=== PATIENT | female | born 1945 | race Caucasian/White ===

== ENCOUNTER 2019-09-05 02:34 | Inpatient (IN) | payer MEDICARE, OTHER ==
[~2019-09-05] VITALS: Ht 152.4 cm; Wt 54.4 kg
--- NOTE | 2019-09-05 02:40 | NUR ---
[id number] FROM HOME C/C LOWER ABD PAIN, +N/V X7HRS, BLOOD IN URINE, TO ER BED 3, VSS AWAITING MED EVAL
[2019-09-05] MEDS ORDERED: MORPHINE SULFATE INJ 2 MG/ML DISP.SYRIN IV ONE (03:00)
[2019-09-05] MEDS ORDERED: IV NS 0.9% 500 ML BAG IV ONE (03:00)
[2019-09-05] MEDS ORDERED: ONDANSETRON HCL/PF 4 MG/2 ML VIAL IVP ONE (03:00)
[2019-09-05 03:07] LABS: BASOPHILS # (AUTO) 0.1 /CMM (0.0-0.2); BASOPHILS % (AUTO) 0.2 % (0.0-2.0); EOSINOPHILS % (AUTO) 0.3 % (0.0-6.0); HEMATOCRIT 49 % (33-45); LYMPHOCYTES # (AUTO) 0.8 /CMM (0.8-4.8); LYMPHOCYTES % (AUTO) 2.6 % (20.0-44.0); MEAN CORPUSCULAR HGB CONC 33 g/dl (31.0-36.0); MEAN CORPUSCULAR VOLUME 97 fL (82-100); MONOCYTES # (AUTO) 1.2 /CMM (0.1-1.30); MONOCYTES % (AUTO) 4.2 % (2.0-12.0); NEUTROPHILS # (AUTO) 27.3 /CMM (1.8-8.9); NEUTROPHILS % (AUTO) 92.7 % (43.0-81.0); PLATELET COUNT (AUTO) 354 /CMM (150-450); RED BLOOD CELL COUNT(AUTO) 5.01 MIL/uL (4.0-5.2); WHITE BLOOD COUNT (AUTO) 29.5 K/uL (4.3-11.0)
[2019-09-05 03:18] LABS: CALCIUM, SERUM 10.9 mg/dL (8.5-10.1); CREATININE 1.1 mg/dL (0.6-1.3); POTASSIUM 3.4 mmol/L (3.5-5.1)
--- NOTE | 2019-09-05 03:28 | NUR ---
PT TAKEN TO RADIOLOGY
[2019-09-05] MEDS ORDERED: VANCOMYCIN 1 GM in IV D5W 250 ML IV ONE (03:30)
[2019-09-05] MEDS ORDERED: LEVOFLOXACIN 750 MG /D5W 150ML PIGGYBACK IV ONE (03:30)
[2019-09-05 03:49] LABS: APPEARANCE,URINE Cloudy (CLEAR); BILIRUBIN,URINE LARGE (NEGATIVE); BLOOD, URINE Negative Ery/uL (NEGATIVE); COLOR,URINE Brown (YELLOW); KETONES,URINE 15 (NEGATIVE); LEUKOCYTE ESTERASE ,URINE Large (NEGATIVE); NITRITE, URINE Positive (NEGATIVE); PROTEIN,URINE 30 mg/dl (NEGATIVE); UGLUCOSE Negative (NEGATIVE)
[2019-09-05] MEDS ORDERED: VANCOMYCIN 1 GM VIAL ONE (03:50)
[2019-09-05 04:43] LABS: BACTERIA,URINE Many /HPF (None Seen); SQUAMOUS EPITHELIAL CELL,UR Many /HPF (None Seen); WBC,URINE 21-50 /HPF (0-3)
[2019-09-05] MEDS ORDERED: IV NS 0.9% 1,000 ML BAG IV ONE (05:00)
[2019-09-05] MEDS ORDERED: ONDANSETRON HCL/PF 4 MG/2 ML VIAL IVP PRN (05:30)
[2019-09-05] MEDS ORDERED: ACETAMINOPHEN 325 MG TABLET PO PRN (05:30)
[2019-09-05] MEDS ORDERED: MORPHINE SULFATE INJ 2 MG/ML DISP.SYRIN IV PRN (05:30)
[2019-09-05] MEDS ORDERED: MONT4TAB9 PO (05:38)
[2019-09-05] MEDS ORDERED: ZOLP10TA2 PO (05:38)
[2019-09-05] MEDS ORDERED: NAPR-1009 PO (05:38)
[2019-09-05] MEDS ORDERED: LEVO137T24 PO (05:38)
[2019-09-05] MEDS ORDERED: ONDANSETRON HCL/PF 4 MG/2 ML VIAL ONE (06:22)
[2019-09-05] MEDS ORDERED: FEE PK DOSING 1 MIN EA MC ONE ×2 (06:42→20:46)
--- NOTE | 2019-09-05 06:46 | NUR ---
ACCORDING TO NURSING SUP. NO NURSES AVAILABLE AT THIS TIME. WILL CALL BACK SHORTLY
--- NOTE | 2019-09-05 07:39 | NUR ---
PLACED CALLL AND GAVE REPORT TO ABE POP FOR TISHA
--- NOTE | 2019-09-05 07:45 | NUR ---
RN NOTE RECEIVED REPORT FROM KIESHA SHI
--- NOTE | 2019-09-05 07:55 | NUR ---
PARKS RECREATION DIRECTOR NOTE RECEIVED PATIENT VIA GURNEY. ALERT AND ORIENTED X4. ON ROOM AIR, NO COMPLAINS OF ANY SOB, PAIN, N/V AT THIS TIME. WAS GIVEN 2200ML IVF. 2X DOSE OF ZOFRAN, MORPHINE AND VANCO IN ER. HAS INTACT SKIN. HAS A RIGHT FA#20 WITH NS AT 75 ML/HR. PATIENT WAS SUPPOSED [place] [facility] DECIDED SHE NEEDS TO BE ON TELE. SR/SB ON TELE MONITOR. PATIENT REFUSED TO REMOVE HER OWN CLOTHES FOR HOSPITAL GOWN. BELONGINGS LIST DONE BY THE RESAW FEEDER. BED LOCKED AND IN LOWEST POSITION. CALL LIGHT WITHIN REACH. WILL CONTINUE TO MONITOR
[2019-09-05 08:00] VITALS: BP 151/66
[2019-09-05] MEDS: PANTOPRAZOLE 40 MG VIAL IV SCH (08:58)
[2019-09-05] MEDS: IV NS 0.9% 1,000 ML IV SCH ×2 (08:58→21:10)
--- NOTE | 2019-09-05 09:00 | NUR ---
RN NOTE CALLED PHARMACY REGARDING PATIENT'S ANTIBIOTICS. PATIENT WAS SUPPOSED TO BE IN [facility]. ANTIBIOTICS WAS SENT THERE. PICKED UP AND WAS GIVEN TO PATIENT LATE
[2019-09-05] MEDS: AZTREONAM 1 G in IV NS 0.9% 100 ML IV SCH ×4 (09:17→14:33)
[2019-09-05] MEDS ORDERED: POTASSIUM CHLORIDE 20 MEQ TAB.PRT.SR PO SCH (10:30)
[2019-09-05] MEDS: METRONIDAZOLE 500MG/ NS 100ML 500 MG in PREMIX 1 EA IV SCH ×2 (10:37→16:48)
[2019-09-05 10:54] LABS: BASOPHILS % (AUTO) 0.1 % (0.0-2.0); HEMATOCRIT 44 % (33-45); HEMOGLOBIN 14.3 g/dL (11.5-14.8); LYMPHOCYTES # (AUTO) 0.5 /CMM (0.8-4.8); LYMPHOCYTES % (AUTO) 2.1 % (20.0-44.0); MEAN CORPUSCULAR HGB CONC 33 g/dl (31.0-36.0); MEAN CORPUSCULAR VOLUME 97 fL (82-100); MONOCYTES # (AUTO) 0.8 /CMM (0.1-1.30); MONOCYTES % (AUTO) 3.3 % (2.0-12.0); NEUTROPHILS # (AUTO) 22.3 /CMM (1.8-8.9); NEUTROPHILS % (AUTO) 94.5 % (43.0-81.0); PLATELET COUNT (AUTO) 292 /CMM (150-450); RED BLOOD CELL COUNT(AUTO) 4.53 MIL/uL (4.0-5.2); WHITE BLOOD COUNT (AUTO) 23.6 K/uL (4.3-11.0)
[2019-09-05 11:21] LABS: ALBUMIN 2.8 g/dL (3.4-5.0); BILIRUBIN,DIRECT 0.1 mg/dL (0.0-0.2); BILIRUBIN,TOTAL 0.6 mg/dL (0.2-1.0); CALCIUM, SERUM 8.3 mg/dL (8.5-10.1); CREATININE 1.1 mg/dL (0.6-1.3); POTASSIUM 4.2 mmol/L (3.5-5.1); TOTAL PROTEIN, SERUM 5.4 g/dL (6.4-8.2)
[2019-09-05 12:00] VITALS: BP 159/76
--- NOTE | 2019-09-05 14:11 | NUR ---
RN NOTE PATIENT REFUSED THE ANTIBIOTIC. SHE SAID SHE WILL GO AMA AND GO TO [facility]. AZAM JACINTO IS AWARE. SHE WILL BE PICKED UP BY HER FRIEND AT 1430 Addendum: 09/05/19 at 1420 by SANGEETA WATSON RN MEDICATION WASTED IN [facility] ROOM
--- NOTE | 2019-09-05 14:37 | NUR ---
RN NOTE PATIENT CHANGED HER MIND ONCE AGAIN. SHE WANTS THE DOSE OF AZACTAM BEFORE SHE LEAVES POINT. SHE WANTED TO GO TO [facility]. MEDICATION GIVEN WILL RUN FOR 1 HOUR AND THEN SHE WILL LEAVE
--- NOTE | 2019-09-05 15:10 | NUR ---
RN NOTE PATIENT REFUSED TO DO THE CT OF ABD PELVIS WITH CONTRAST.
--- NOTE | 2019-09-05 15:23 | NUR ---
RN NOTE UNIQUE ID FOR AMA: [id number]
--- NOTE | 2019-09-05 15:33 | NUR ---
RN NOTE PATIENT ABOUT TO LEAVE, AMA FORM SIGNED ALREADY. BUT SHE THINKS SHE WANTS TO STAY FOR A FEW MORE HOURS. SHE COULDN'T DECIDE AT THIS TIME IF SHE'S GOING OR NOT
[2019-09-05 16:00] VITALS: BP 124/82
[2019-09-05] MEDS ORDERED: VANCOMYCIN 500 MG in IV D5W 100 ML IV SCH (16:00)
--- NOTE | 2019-09-05 16:22 | NUR ---
RN NOTE PATIENT DECIDED TO STAY. OPHELIA MADE AWARE. ALSO, SECOND DOSE OF AZACTAM IV WAS GIVEN. PATIENT'S FACE/NECK STARTED TO TURN RED. SHE SAID IT FELT WARM. NO SOB/DISTRESS NOTED. JACINTO MADE AWARE. ORDERED 500ML NS BOLUS. PHARMACY MADE AWARE WELL.
[2019-09-05] MEDS ORDERED: IV NS 0.9% 500 ML IV ONE (16:30)
[2019-09-05] MEDS: VANCOMYCIN 500 MG in IV D5W 100 ML IV SCH (17:49)
--- NOTE | 2019-09-05 18:49 | NUR ---
RN CLOSING NOTE PATIENT IN BED, AWAKE AND ALERTX4. ALL MEDS GIVEN. ALL NEEDS MET. PATIENT ON TELE MONITOR, SR. HAS A RIGHT FA #20 WITH NS AT 75 ML/HR. PATIENT REFUSED CT SCAN FOR NOW. SHE SAID SHE WILL GO AMA TOMORROW AND GO TO THE [facility] AND HAVE CT OVER THERE. LACTIC ACID STILL ELEVATED AT 2.8. ID AWARE THAT PATIENT HAD A REACTION WITH AZACTAM. ID TALKED TO THE PATIENT REGARDING PLAN OF CARE. BED LOCKED AND IN LOWEST POSITION. CALL LIGHT WITHIN REACH. WILL ENDORSE TO NOC SHIFT FOR TISHA
[2019-09-05] MEDS ORDERED: DOSING PER PHARMACY-AMIKACI IV XX PRN (19:30)
[2019-09-05] MEDS ORDERED: diphenhydrAMINE HCL 50 MG/ML VIAL IV PRN (19:30)
--- NOTE | 2019-09-05 19:30 | NUR ---
LAMINATING MACHINE TENDER OPENING NOTE RECEIVED PATIENT IN BED. A/O X4. TOLERATING ROOM AIR. RESPIRATIONS ARE EVEN AND UNLABORED. NO S/ SOB NOTED. DENIES PAIN AT THIS TIME. EXTERNAL TELE MONITOR READS SR WITH BBB. IN NO APPARENT DISTRESS. IV ACCCESS IN RFA RUNNING NS@75ML/HR. BED IS LOW AN DLOCKED, HOB ELEVATED IN SEMI FOWLERS, SIDE RAILS UP X2, BED ALARM ON. CALL LIGHT WITHIN REACH. WILL CONTINUE TO MONITOR.
[2019-09-05 20:00] VITALS: BP 176/81
--- NOTE | 2019-09-05 21:00 | NUR ---
[place] SEAMER NOTE TRANSFERRED PATIENT FROM ROOM 115-2 TO 109. ALL BELONGINGS TRANSFERRED WITH PATIENT. PATIENT IS STABLE. WILL CONTINUE TO MONITOR.
[2019-09-05] MEDS: AMIKACIN 350 MG in IV D5W 100 ML IV SCH (21:04)
[2019-09-05] MEDS: NYSTATIN (PYXIS) 500,000 UNIT/5 ML ORAL.SUSP PO SCH (21:04)
--- NOTE | 2019-09-05 21:11 | NUR ---
OWNER CONSULTING ENGINEER NOTE ADMINISTERED PRN BENADRYL 12.5MG PER MD VERBAL ORDER BEFORE AMIKICIN. WILL CONTINUE TO MONITOR.
--- NOTE | 2019-09-05 21:46 | NUR ---
HEALTH PROMOTER NOTE ADMINISTERED PRN MORPHINE O.5 MG D/T PAIN 8/10 IN BACK AND LOWER EXTREMITIES. WILL CONTINUE TO MONITOR,
[2019-09-05] MEDS ORDERED: LORAZEPAM INJ 2 MG/ML VIAL IV ONE (23:00)
[2019-09-05] MEDS ORDERED: NAPROXEN 500 MG TABLET PO SCH (23:00)
[2019-09-06] VITALS: BP 181/76
--- NOTE | 2019-09-06 | NUR ---
CLIENT RELATIONSHIP MANAGER NOTE PATIENT BLOOD PRESSURE IS HIGH. IT IS ANXIETY RELATED. CALLED THE DOC. SHE ORDERED ATIVAN 0.5MG. PATIENT REFUSED TO TAKE ATIVAN. BP CONTINUES TO BE HIGH. REFUSING ALL OTHER ANXIETY MEDICATION. MD AWARE. PATIENT STATES HER BP WILL DECREASE ON ITS OWN. WILL CONTINUE OT MONITOR.
[2019-09-06] MEDS: METRONIDAZOLE 500MG/ NS 100ML 500 MG in PREMIX 1 EA IV SCH ×3 (00:13→18:14)
[2019-09-06] MEDS ORDERED: ZOLPIDEM TARTRATE 10 MG TABLET PO ONE (01:30)
[2019-09-06 04:00] VITALS: BP 135/70
[2019-09-06] MEDS: VANCOMYCIN 500 MG in IV D5W 100 ML IV SCH ×2 (05:34→19:18)
[2019-09-06 06:13] LABS: BASOPHILS % (AUTO) 0.2 % (0.0-2.0); HEMATOCRIT 39 % (33-45); HEMOGLOBIN 12.8 g/dL (11.5-14.8); LYMPHOCYTES # (AUTO) 1.7 /CMM (0.8-4.8); LYMPHOCYTES % (AUTO) 10.4 % (20.0-44.0); MEAN CORPUSCULAR HGB CONC 33 g/dl (31.0-36.0); MEAN CORPUSCULAR VOLUME 96 fL (82-100); MONOCYTES % (AUTO) 5.8 % (2.0-12.0); NEUTROPHILS # (AUTO) 13.7 /CMM (1.8-8.9); NEUTROPHILS % (AUTO) 83.6 % (43.0-81.0); PLATELET COUNT (AUTO) 258 /CMM (150-450); RED BLOOD CELL COUNT(AUTO) 4.04 MIL/uL (4.0-5.2); WHITE BLOOD COUNT (AUTO) 16.4 K/uL (4.3-11.0)
[2019-09-06 06:50] LABS: ALBUMIN 2.5 g/dL (3.4-5.0); BILIRUBIN,TOTAL 0.6 mg/dL (0.2-1.0); CALCIUM, SERUM 8.1 mg/dL (8.5-10.1); CREATININE 0.9 mg/dL (0.6-1.3); MAGNESIUM 1.9 mg/dL (1.8-2.4); POTASSIUM 3.8 mmol/L (3.5-5.1); TOTAL PROTEIN, SERUM 5.3 g/dL (6.4-8.2)
[2019-09-06 06:54] LABS: THYROID STIMULATING HORMONE 0.282 uIU/mL (0.358-3.74)
--- NOTE | 2019-09-06 07:00 | NUR ---
HAND UMBRELLA TIPPER CLOSING NOTE NO SIGNIFICANT CHANGES THROUGHOUT SHIFT. WILL ENDORSE TO NEXT SHIFT.
--- NOTE | 2019-09-06 07:40 | NUR ---
MOLD YARD WORKER OPENING NOTE RECEIVED REPORT FROM PM NURSE.PATIENT IN BED. A/O X4. TOLERATING ROOM AIR. RESPIRATIONS ARE EVEN AND UNLABORED. NO S/ SOB NOTED. DENIES PAIN AT THIS TIME. EXTERNAL TELE MONITOR READS SR WITH BBB HR 85. IV ACCESS IN RFA RUNNING NS@75ML/HR. BED IS LOW AND LOCKED POSITION. HOB ELEVATED IN SEMI FOWLERS.CALL LIGHT IN REACH.SIDE RAILS UP X3. BED ALARM ON. WILL CONTINUE TO MONITOR.
[2019-09-06 08:00] VITALS: BP 175/88
[2019-09-06] MEDS: NYSTATIN (PYXIS) 500,000 UNIT/5 ML ORAL.SUSP PO SCH ×3 (08:18→17:44)
[2019-09-06] MEDS: PANTOPRAZOLE 40 MG VIAL IV SCH (08:18)
[2019-09-06] MEDS: TRAMADOL HCL 50 MG TABLET PO PRN ×2 (09:06→20:59)
[2019-09-06] MEDS: LEVOTHYROXINE SODIUM 125 MCG TABLET PO SCH (09:07)
--- NOTE | 2019-09-06 09:30 | NUR ---
CHANGE ROOM ATTENDANT NOTE PATIENT C/O THAT HE DID NOT SEEN ANY DOCTORS.FIND OUT THAT SHE SEEN BY VIDEO PRODUCTION COORDINATOR PRIMARY DOCTOR AND FROM INFECTIOUS DISEASE.EXPLAINED THE DOCTORS ROUNDING AND GROUP OF DOCTORS.WILL HAVE ASSIGNED PROVIDER TO SEE PATIENT AND ANSWER ALL QUESTIONS.WILL CONTINUE TO MONITOR.NOT READY FOR CTA.PATIENT NEED TO TALK WITH PRIMARY DOCTOR .WAITING FOR ROUNDS.
[2019-09-06] MEDS: AMLODIPINE BESYLATE 10 MG TABLET PO SCH (09:44)
[2019-09-06] MEDS ORDERED: NAPROXEN 500 MG TABLET PO PRN (10:00)
[2019-09-06 10:30] VITALS: BP 152/75
[2019-09-06] MEDS ORDERED: NEUTRA PHOS 1 POWD.PACKET PO ONE (11:30)
--- NOTE | 2019-09-06 12:00 | NUR ---
RN NOTES RECEIVED REPORT FROM [facility] FOR CONTINUITY OF CARE.
--- NOTE | 2019-09-06 12:10 | NUR ---
RN NOTE ENDORSED TO PM NURSE FOR TISHA.PATIENT IS MARY4.AWAITING SSD VISIT FOR PERSONAL REQUEST TO POST LETTER.SSD MADE AWARE. Addendum: 09/06/19 at 1214 by PETER WEST RN ENDORSED TO JOSEPH POP FOR TISHA.
[2019-09-06 16:00] VITALS: BP 139/75
--- NOTE | 2019-09-06 16:45 | NUR ---
RN NOTES AFTERNOON IV ABX (METRONIDAZOLE AND VANCO) HAVE BEEN DELAYED BECAUSE PT HAS NO PATENT IV SITE. PT IS HARDSTICK AND WE FAILED MULTIPLE ATTEMPTS AT STARTING AN IV LINE. WAITING FOR MIDLINE INSERTION. NURSING ROLL TRUCKER AWARE. WILL ADMIN ONCE AVAILABLE.
--- NOTE | 2019-09-06 18:00 | NUR ---
RN NOTES PATIENT HAS MIDLINE ON SYEDA 18 G, WILL ADMIN IV ABX PRESCRIBED.
[2019-09-06] MEDS: IV NS 0.9% 1,000 ML IV SCH ×2 (18:49→22:00)
--- NOTE | 2019-09-06 19:34 | NUR ---
RN CLOSING NOTES PATIENT IS RESTING COMFORTABLY IN BED AT THIS TIME, DENIES ANY PAIN OR DISCOMFORT. PT IS S/P MIDLINE PLACEMENT IN THE SYEDA 18 G, TOLERATED WELL. IV ABX. WERE DELAYED TODAY BECAUSE NO IV SITE WAS PRESENT AND WE WERE WAITING FOR MIDLINE PLACEMENT. PT NEEDS HAVE BEEN MET, VITAL SIGNS ARE STABLE, NO ACUTE CHANGES OCCURRED THROUGHOUT THE SHIFT. SAFETY MEASURES HAVE BEEN IMPLEMENTED, CALL LIGHT IS WITHIN REACH, BED IS IN LOWEST AND LOCKED POSITION, SIDE RAILS UP X2, PT HAS BEEN ENDORSED TO NIGHTSHIFT RN FOR CONTINUITY OF CARE.
[2019-09-06 20:00] VITALS: BP_SYST 109; BP_SYST 113; BP_DIAS 66; BP_DIAS 70
[2019-09-06] MEDS: AMIKACIN 350 MG in IV D5W 100 ML IV SCH (20:41)
[2019-09-06] MEDS: MAG HYDROX/AL HYDROX/SIMETH 30 ML UDC PO PRN (20:41)
[2019-09-06] MEDS: ZOLPIDEM TARTRATE 5 MG TABLET PO PRN (23:15)
[2019-09-07] MEDS: METRONIDAZOLE 500MG/ NS 100ML 500 MG in PREMIX 1 EA IV SCH ×3 (01:43→15:56)
[2019-09-07] MEDS: MAG HYDROX/AL HYDROX/SIMETH 30 ML UDC PO PRN ×3 (03:34→20:02)
[2019-09-07 04:00] VITALS: BP 121/79
[2019-09-07] MEDS: VANCOMYCIN 500 MG in IV D5W 100 ML IV SCH (05:59)
[2019-09-07] MEDS: LEVOTHYROXINE SODIUM 125 MCG TABLET PO SCH (06:09)
--- NOTE | 2019-09-07 07:00 | NUR ---
RN CLOSING NOTES PATIENT IN BED AWAKE AT THIS TIME, AT RA BREATHING EVEN AND UNLABORED, NO SOB/ACUTE DISTRESS NOTED AT THIS TIME, SYEDA MIDLINE IN PLACED, IVF INFUSING WELL AND PATIENT TOLERATED WELL, TOLERATED WELL, NO SIGNIFICANT CHANGE IN CONDITION DURING THE NIGHT, SAFETY MEASURES HAVE BEEN IMPLEMENTED, CALL LIGHT WITHIN REACH, BED IS IN LOWEST AND LOCKED POSITION, SIDE RAILS UP X2, WILL ENDORSE PATIENT TO ONCOMING NURSE FOR CONTINUITY OF CARE.
--- NOTE | 2019-09-07 07:00 | NUR ---
MS RN OPENING NOTE: RECEIVED PATIENT IN BED AWAKE, ALERT AND ORIENTED X4. WITH A PLEASANT AND COOPERATIVE DEMEANOR. CONTACT ISOLATION FOR C. DIFFICLE PRECAUTIONS IN PLACE AND STAFF IS AWARE. ON ROOM AIR AND TOLERATING WELL. NO SOB NOTED. NOT IN DISTRESS WITH SYEDA IV SITE. SITE CLEAN, SECURE AND PATENT. IV INFUSION OF NS @ 75MLS/HR, INFUSING WELL. NO PAIN REPORTED. CALL LIGHT IN REACH, SIDE RAILS UP, BED LOCKED, LOW AND AT SEMI-SUN'S POSITION. WILL CONTINUE TO MONITOR.
[2019-09-07 07:06] LABS: BASOPHILS # (AUTO) 0.1 /CMM (0.0-0.2); BASOPHILS % (AUTO) 0.5 % (0.0-2.0); EOSINOPHILS % (AUTO) 0.7 % (0.0-6.0); HEMATOCRIT 34 % (33-45); HEMOGLOBIN 11.4 g/dL (11.5-14.8); LYMPHOCYTES # (AUTO) 2.9 /CMM (0.8-4.8); LYMPHOCYTES % (AUTO) 24.5 % (20.0-44.0); MEAN CORPUSCULAR HGB CONC 33 g/dl (31.0-36.0); MEAN CORPUSCULAR VOLUME 96 fL (82-100); MONOCYTES # (AUTO) 0.7 /CMM (0.1-1.30); MONOCYTES % (AUTO) 5.9 % (2.0-12.0); NEUTROPHILS % (AUTO) 68.4 % (43.0-81.0); PLATELET COUNT (AUTO) 224 /CMM (150-450); RED BLOOD CELL COUNT(AUTO) 3.57 MIL/uL (4.0-5.2); WHITE BLOOD COUNT (AUTO) 11.7 K/uL (4.3-11.0)
[2019-09-07 07:22] LABS: CALCIUM, SERUM 8.3 mg/dL (8.5-10.1); CREATININE 0.7 mg/dL (0.6-1.3); MAGNESIUM 1.7 mg/dL (1.8-2.4); PHOSPHORUS 1.5 mg/dL (2.5-4.9); POTASSIUM 3.8 mmol/L (3.5-5.1)
[2019-09-07 08:00] VITALS: BP 136/66
[2019-09-07] MEDS: PANTOPRAZOLE 40 MG VIAL IV SCH (09:35)
[2019-09-07] MEDS: AMLODIPINE BESYLATE 10 MG TABLET PO SCH (09:36)
[2019-09-07] MEDS: NYSTATIN (PYXIS) 500,000 UNIT/5 ML ORAL.SUSP PO SCH ×3 (09:36→16:49)
[2019-09-07] MEDS: Magnesium 1GM/D5W 100ML PREMIX 100 ML IV SCH ×2 (10:37→11:47)
[2019-09-07] MEDS ORDERED: K PHOS NEUTRAL 250 MG TABLET PO ONE (12:30)
[2019-09-07] MEDS: TRAMADOL HCL 50 MG TABLET PO PRN (14:25)
[2019-09-07 16:00] VITALS: BP 124/63
[2019-09-07] MEDS ORDERED: VANCOMYCIN 0.75 GM in IV D5W 250 ML IV SCH (17:00)
--- NOTE | 2019-09-07 19:25 | NUR ---
MS RN CLOSING NOTE: PATIENT IN BED AWAKE, ALERT AND ORIENTED X4. CONTACT ISOLATION FOR C. DIFFICLE PRECAUTIONS IN PLACE AND STAFF IS AWARE. ON ROOM AIR AND TOLERATING WELL. NO SOB NOTED. NOT IN DISTRESS WITH SYEDA IV SITE. SITE CLEAN, SECURE AND PATENT. IV INFUSION OF NS @ 75MLS/HR, INFUSING WELL. NO PAIN REPORTED. CALL LIGHT IN REACH, SIDE RAILS UP, BED LOCKED, LOW AND AT SEMI-SUN'S POSITION. ENDORSED TO ONCOMING SHIFT FOR TISHA.
--- NOTE | 2019-09-07 19:35 | NUR ---
RN NOTES, PATIENT AWAKE LYING IN ED, A/O X4 ABLE TO VERBALIZE NEEDS AND CONCERNS, ON RA BREATHING EVEN AND UNLABORED, NO SOB/ACUTE DISTRESS NOTED AT THIS TIME, DENIES ANY PAIN OR DISCOMFORT, DENIES ANY DISTRESS, ALL SAFETY MEASURES IN PLACED, SYEDA MIDLINE IN PLACED, IVF INFUSING WELL AND PATIENT TOLERATED WELL, PATENT AND INTACT, CONTACT ISOLATION PRECAUTIONS IN PLACED, CALL LIGHT IS WITHIN REACH, BED LOCKED AND LOWEST POSITION, SIDE RAILS UP X2, WILL CONTINUE TO MONITOR CLOSELY.
[2019-09-07 20:00] VITALS: BP 141/81
[2019-09-07] MEDS: AMIKACIN 350 MG in IV D5W 100 ML IV SCH (20:02)
[2019-09-07] MEDS: IV NS 0.9% 1,000 ML IV SCH (22:00)
[2019-09-07] MEDS: ZOLPIDEM TARTRATE 5 MG TABLET PO PRN (23:06)
[2019-09-08 04:00] VITALS: BP 139/79
[2019-09-08] MEDS: LEVOTHYROXINE SODIUM 125 MCG TABLET PO SCH (05:45)
--- NOTE | 2019-09-08 07:00 | NUR ---
RN CLOSING NOTES PATIENT IN BED AWAKE AT THIS TIME, AT RA BREATHING EVEN AND UNLABORED, NO SOB/ACUTE DISTRESS NOTED AT THIS TIME, SYEDA MIDLINE IN PLACED, IVF INFUSING WELL AND PATIENT TOLERATED WELL, TOLERATED WELL, SAFETY MEASURES HAVE BEEN IMPLEMENTED, CALL LIGHT WITHIN REACH, BED IS IN LOWEST AND LOCKED POSITION, SIDE RAILS UP X2, NO SIGNIFICANT CHANGE IN CONDITION DURING THE NIGHT, WILL ENDORSE PATIENT TO ONCOMING NURSE FOR CONTINUITY OF CARE.
--- NOTE | 2019-09-08 07:00 | NUR ---
MS RN OPENING NOTE: RECEIVED PATIENT IN BED AWAKE, ALERT AND ORIENTED X4. WITH A PLEASANT AND COOPERATIVE DEMEANOR. ON ROOM AIR AND TOLERATING WELL. NO SOB NOTED. NOT IN DISTRESS WITH SYEDA IV SITE. SITE CLEAN, SECURE AND PATENT. IV INFUSION OF NS @ 75MLS/HR, INFUSING WELL. NO PAIN REPORTED. CALL LIGHT IN REACH, SIDE RAILS UP, BED LOCKED, LOW AND AT SEMI-SUN'S POSITION. WILL CONTINUE TO MONITOR.
[2019-09-08 07:10] LABS: BASOPHILS # (AUTO) 0.1 /CMM (0.0-0.2); BASOPHILS % (AUTO) 0.9 % (0.0-2.0); EOSINOPHILS % (AUTO) 1.6 % (0.0-6.0); HEMATOCRIT 35 % (33-45); HEMOGLOBIN 11.8 g/dL (11.5-14.8); LYMPHOCYTES # (AUTO) 2.2 /CMM (0.8-4.8); LYMPHOCYTES % (AUTO) 35.1 % (20.0-44.0); MEAN CORPUSCULAR HGB CONC 34 g/dl (31.0-36.0); MEAN CORPUSCULAR VOLUME 96 fL (82-100); MONOCYTES # (AUTO) 0.5 /CMM (0.1-1.30); NEUTROPHILS # (AUTO) 3.4 /CMM (1.8-8.9); NEUTROPHILS % (AUTO) 54.4 % (43.0-81.0); PLATELET COUNT (AUTO) 237 /CMM (150-450); RED BLOOD CELL COUNT(AUTO) 3.63 MIL/uL (4.0-5.2); WHITE BLOOD COUNT (AUTO) 6.3 K/uL (4.3-11.0)
[2019-09-08 07:14] LABS: CALCIUM, SERUM 8.1 mg/dL (8.5-10.1); CREATININE 0.7 mg/dL (0.6-1.3); MAGNESIUM 1.8 mg/dL (1.8-2.4); PHOSPHORUS 1.8 mg/dL (2.5-4.9); POTASSIUM 3.6 mmol/L (3.5-5.1)
[2019-09-08 08:00] VITALS: BP_SYST 138; BP_SYST 162; BP_DIAS 105; BP_DIAS 63
[2019-09-08] MEDS ORDERED: IV NS 0.9% 1,000 ML IV PRN (08:32)
[2019-09-08 08:47] VITALS: BP 138/63
[2019-09-08] MEDS: NYSTATIN (PYXIS) 500,000 UNIT/5 ML ORAL.SUSP PO SCH ×2 (08:47→13:00)
[2019-09-08] MEDS: PANTOPRAZOLE 40 MG VIAL IV SCH (08:47)
[2019-09-08] MEDS: AMLODIPINE BESYLATE 10 MG TABLET PO SCH (08:47)
[2019-09-08] MEDS ORDERED: K PHOS NEUTRAL 250 MG TABLET PO ONE (11:00)
[2019-09-08] MEDS ORDERED: NYST5ORA PO ×2 (11:18→14:49)
[2019-09-08] MEDS ORDERED: CEFU500T66 PO ×2 (11:18→14:49)
[2019-09-08] MEDS ORDERED: DOXY-226 PO ×2 (11:18→14:49)
[2019-09-08] MEDS ORDERED: AMLO10TA7 PO ×2 (11:18→14:49)
[2019-09-08] MEDS: TRAMADOL HCL 50 MG TABLET PO PRN (14:16)
[2019-09-08] MEDS: MAG HYDROX/AL HYDROX/SIMETH 30 ML UDC PO PRN (14:16)
--- NOTE | 2019-09-08 15:10 | NUR ---
MS BRANCH CUSTOMER SERVICE REPRESENTATIVE NOTE: PATIENT WAS SEEN BY ARMAND ASIF DNP FOR DISCHARGE INSTRUCTIONS. PATIENT UNDERSTOOD PLAN AND VERBALIZED UNDERSTANDING. BELONGING FORMS AND DISCHARGE FORMS WERE SIGNED. MEDICATIONS WERE ENDORSED TO [facility] (PREFERRED PATIENT PHARMACY) AND PATIENT REFUSED SKIN CHECK UPON DISCHARGE. HOME HEALTH REFERRAL WAS GIVEN BY CASE MANAGEMENT. PATIENT ESCORTED TO [facility] IN STABLE CONDITION WHERE SHE WILL TAKE AN UBER/LYFT HOME.
== END 2019-09-08 15:10 | disposition home or self-care (01) | DRG 871 ==
LOC: ER 02:34 → TELE2 05:23 → TELE1 07:39 → MEDSG1 09-06 09:55
PROVIDERS: ADMIT Nurse Practitioner Acute Care; ATTEND Nurse Practitioner Acute Care
PROC: 05HB33Z Insertion of Infusion Device into Right Basilic Vein, Percutaneous Approach (ICD-10-PCS; principal; 2019-09-07)
DX: A41.9 Sepsis, unspecified organism (principal); J18.9 Pneumonia, unspecified organism; N39.0 Urinary tract infection, site not specified; E87.2 Acidosis; B37.0 Candidal stomatitis; J98.11 Atelectasis; D84.9 Immunodeficiency, unspecified; R18.8 Other ascites; I10 Essential (primary) hypertension; E03.9 Hypothyroidism, unspecified; R65.20 Severe sepsis without septic shock; I25.10 Atherosclerotic heart disease of native coronary artery without angina pectoris; G89.29 Other chronic pain; F41.9 Anxiety disorder, unspecified; Z90.710 Acquired absence of both cervix and uterus; Z90.49 Acquired absence of other specified parts of digestive tract; Z88.1 Allergy status to other antibiotic agents; Z98.890 Other specified postprocedural states; M81.0 Age-related osteoporosis without current pathological fracture; Z88.0 Allergy status to penicillin; Z88.2 Allergy status to sulfonamides; K44.9 Diaphragmatic hernia without obstruction or gangrene; K57.30 Diverticulosis of large intestine without perforation or abscess without bleeding; K52.9 Noninfective gastroenteritis and colitis, unspecified; K76.89 Other specified diseases of liver
CPT/HCPCS: 36415; 71045-TC; 80048-TC; 80053-TC; 80061-TC; 80076-TC; 80202-TC; 81000-TC; 83605-TC; 83735-TC; 84100-TC; 84443-TC; 85025-TC; 87040-TC; 87045-TC; 87081-TC; 87086-TC; A4216; A6403; C9113; G0378; J0278; J1200; J2060; J2270; J2405; J3370; J3475; J3490; J7030; J7040; J7060